=== PATIENT | female | born 1965 | race African-American/Black ===

== ENCOUNTER 2016-10-02 12:45 | Emergency (ER) | payer BC, OTHER ==
[2016-10-02 13:07] VITALS: BP 118/74; PULSE 64; TEMP 98.1; BMI 31.3
[2016-10-02] MEDS ORDERED: IBUPROFEN 600 MG TABLET (FP) PO ONE ×2 (13:28→13:36)
--- NOTE | 2016-10-02 13:39 | PDOC ---
History of Present Illness - General Chief Complaint: Injury Stated Complaint: FALL, WRIST PAIN Time Seen by Provider: 10/02/16 13:24 History Source: Patient Exam Limitations: No Limitations - History of Present Illness Initial Comments: 10/02/16 13:35 51 yr female slipped and fell on applesauce that was on the floor at her job injured left wrist. no head trauma. no deformity. Occurred: reports: this morning Severity: reports: mild Pain Location: reports: upper extremity (left wrist/hand) Past History - Past Medical History Allergies/Adverse Reactions: Allergies Allergy/AdvReac Type Severity Reaction Status Date / Time No Known Drug Allergies Allergy Verified 10/02/16 13:03 adhesive remover AdvReac Severe Hives Uncoded 10/02/16 13:03 Home Medications: Ambulatory Orders Cholecalciferol (Vitamin D3) [Vitamin D] 1,000 unit PO DAILY 02/11/16 Multivitamins [Tab-A-Vit -] 1 tab PO DAILY 02/11/16 Ibuprofen [Motrin -] 400 mg PO PRN PRN 02/18/16 Amox-Clav 875-125 mg Tablet 1 tab PO BID 03/26/16 Anemia: No Asthma: No Cancer: No Cardiac Disorders: No CVA: No COPD: No CHF: No Dementia: No Diabetes: No GI Disorders: No Disorders: No HTN: No Hypercholesterolemia: No Liver Disease: No Seizures: No Thyroid Disease: No Other medical history: DENIES. - Surgical History Abdominal Surgery: No Appendectomy: No Cardiac Surgery: No Cholecystectomy: No GI Surgery: Yes (gastric sleeve) Lung Surgery: No Neurologic Surgery: (LYMPH NODE REMOVED FROM NECK - BENIGN) Orthopedic Surgery: No - Immunization History Immunization Up to Date: Yes - Psycho/Social/Smoking Cessation Hx Anxiety: No Suicidal Ideation: No Smoking Status: Yes Smoking History: Current some day smoker Have you smoked in the past 12 months: Yes Number of Cigarettes Smoked Daily: 3 If you are a former smoker, when did you quit?: SOCIAL SMOKER-LAST CIGARETTE Information on smoking cessation initiated: No 'Breaking Loose' booklet given: 02/11/16 Hx Alcohol Use: Yes (SOCIAL) Drug/Substance Use Hx: No Substance Use Type: None Hx Substance Use Treatment: No Trauma Specific PMHX - Complaint Specific PMHX Arthritis: No Back Injury: No Neck Injury: No Hx Sacro Iliac Joint Dysfunction: No Review of Systems - Review of Systems Able to Perform ROS?: Yes Is the patient limited Kinyarwanda proficient: No Constitutional: No: Symptoms Reported HEENTM: No: Symptoms Reported Respiratory: No: Symptoms reported Cardiac (ROS): No: Symptoms Reported ABD/GI: No: Symptoms Reported : No: Symptoms Reported Musculoskeletal: Yes: See HPI *Physical Exam - Vital Signs Last Vital Signs Temp Pulse Resp BP Pulse Ox 98.1 F 64 19 118/74 95 10/02/16 13:03 10/02/16 13:03 10/02/16 13:03 10/02/16 13:03 10/02/16 13:03 - Physical Exam General Appearance: Yes: Nourished, Appropriately Dressed HEENT: positive: EOMI, JULIANNA Neck: positive: Supple Respiratory/Chest: positive: Lungs Clear, Normal Breath Sounds Cardiovascular: positive: Regular Rhythm, Regular Rate Gastrointestinal/Abdominal: positive: Normal Bowel Sounds, Soft Extremity: positive: Normal Capillary Refill, Normal Inspection, Normal Range of Motion, Tender (left at crease of wrist with bending, mild bruising noted no point bony tenderness) Integumentary: positive: Normal Color, Dry, Warm Neurologic: positive: Fully Oriented, Alert, Normal Mood/Affect, Normal Response , Motor Strength 5/5 ED Treatment Course - RADIOLOGY Radiology Studies Ordered: Category Date Time Status WRIST W/HAND-LEFT* [RAD] Stat Radiology 10/02/16 13:24 Ordered Medical Decision Making - Medical Decision Making 10/02/16 13:37 cc: slip and fall injured left wrist and hand nv intact no deformity or swelling tender to touch crease of wrist left will xray to r/o frx motrin for pain *DC/Admit/Observation/Transfer Diagnosis at time of Disposition: Left wrist sprain Qualifiers: Encounter type: initial encounter Qualified Code(s): S63.502A - Unspecified sprain of left wrist, initial encounter - Discharge Dispostion Disposition: HOME Condition at time of disposition: Good - Referrals Referrals: Manohar Vickers MD [Primary Care Provider] - Dm Tyler MD [Staff Physician] - - Patient Instructions Additional Instructions: follow with the orthopedist if any worsening symptoms or pain take motrin (over the counter advil, ibuprofen) 400-600mg every 6hrs for pain use the wrist splint while awake remove to sleep and bathe - Post Discharge Activity Work/School Note: Back to Work
== END 2016-10-02 14:05 | disposition home or self-care (01) ==
LOC: JERFT 12:45
PROC: 2W3DX1Z Immobilization of Left Lower Arm using Splint (ICD-10-PCS; principal; 2016-10-02)
DX: S63.502A Unspecified sprain of left wrist, initial encounter (principal); W01.0XXA Fall on same level from slipping, tripping and stumbling without subsequent striking against object, initial encounter; Y93.89 Activity, other specified; Y92.218 Other school as the place of occurrence of the external cause; Y99.0 Civilian activity done for income or pay
CPT/HCPCS: 73110-TC-LT; 73130-TC-LT; 99281-25

== ENCOUNTER 2017-09-09 15:30 | Inpatient (IN) | payer BC ==
[2017-09-15 09:47] VITALS: BMI 33.8
[2017-09-16] MEDS ORDERED: BUPIVACAINE HCL/PF 0.5% (5MG/ML) 10 ML VIAL ONE (13:05)
[2017-09-16] MEDS ORDERED: ROCURONIUM BROMIDE 50 MG/5 ML VIAL ONE ×2 (13:23→14:53)
[2017-09-16] MEDS ORDERED: MIDAZOLAM HCL 2 MG/2 ML SINGLE DOSE VIAL ONE (13:23)
[2017-09-16] MEDS ORDERED: SUCCINYLCHOLINE CHLORIDE 200 MG/10 ML VIAL ONE (13:24)
[2017-09-16] MEDS ORDERED: ceFAZolin SODIUM 1 GM VIAL IVPB ONE (13:43)
[2017-09-16] MEDS ORDERED: LIDOCAINE HCL/PF 2% SDV 5ML VIAL ONE (14:45)
[2017-09-16] MEDS ORDERED: LIDOCAINE HCL 2% JELLY (5 ML/TUBE) ONE (14:45)
[2017-09-16] MEDS ORDERED: hydrALAZINE HCL 20 MG/ML VIAL ONE (14:45)
[2017-09-16] MEDS ORDERED: DEXAMETHASONE SOD PHOSPHATE 4 MG/1 ML VIAL ONE (14:45)
[2017-09-16] MEDS ORDERED: METOPROLOL TARTRATE 5 MG/5 ML VIAL ONE (14:45)
[2017-09-16] MEDS ORDERED: NEOSTIGMINE METHYLSULFATE 0.5 MG/ML - 10 ML MDV ONE (15:15)
[2017-09-16] MEDS ORDERED: GLYCOPYRROLATE 0.2 MG/1 ML VIAL ONE (15:15)
[2017-09-16] MEDS ORDERED: BUPIVACAINE HCL/PF 0.5% (5MG/ML) 10 ML VIAL IJ ONE (15:20)
--- NOTE | 2017-09-16 15:26 | OP ---
Operative Note - Note: Operative Date: 09/16/17 Pre-Operative Diagnosis: Rule out leak/obstruction s/p sleeve gastrectomy Operation: EGD/upper endoscopy Post-Operative Diagnosis: Other (No leak/obstruction) Surgeon: Ede Peralta Anesthesia: General Specimens Removed: None Estimated Blood Loss (mls): 0 Operative Report Dictated: Yes
[2017-09-16] MEDS ORDERED: SODIUM CHLORIDE 1,000 ML IV SCH (15:30)
--- NOTE | 2017-09-16 15:30 | OP ---
Operative Note - Note: Operative Date: 09/16/17 Pre-Operative Diagnosis: Morbid Obesity Operation: Laparoscopic Vertical Sleeve Gastrectomy. Laparoscopic Lysis of adhesions. Diagnostic Laparoscopy Findings: Greater curve sleeve gastrectomy performed with #[address] Large amount of adhesions noted on greater curve from previous surgery Post-Operative Diagnosis: Same as Pre-op (Abdominal adhesions) Surgeon: Cash Helms Burglar Alarm Operator: Ede Peralta Anesthesia: General Specimens Removed: Greater curve of stomach Estimated Blood Loss (mls): 50 Operative Report Dictated: Yes
[2017-09-16] MEDS ORDERED: IBUPROFEN 800 MG/8 ML IJ IVPB PRN (15:31)
[2017-09-16] MEDS: METOCLOPRAMIDE HCL INJECTION 10 MG/2 ML VIAL IVPUSH PRN (15:45)
[2017-09-16] MEDS ORDERED: LACTATED RINGERS SOLUTION 1,000 ML IV SCH (15:45)
[2017-09-16] MEDS ORDERED: oxyCODONE HCL 5 MG TABLET PO PRN (15:50)
--- NOTE | 2017-09-16 15:55 | OP ---
DATE OF OPERATION: 09/16/2017 SURGEON: Filomena Peralta MD PREOPERATIVE DIAGNOSIS: Rule out leak/obstruction after vertical sleeve gastrectomy. POSTOPERATIVE DIAGNOSIS: No leak/no obstruction. PROCEDURE: Esophagogastroduodenoscopy/upper endoscopy. SPECIMEN: None. ESTIMATED BLOOD LOSS: Zero mL. DRAINS: None. ANESTHESIA: GET. REASON FOR PROCEDURE: This is a 52-year-old female who underwent a vertical sleeve gastrectomy by Dr. Cash Helms. Upper endoscopy was requested to rule out leak/obstruction. The upper endoscope was inserted into patient's mouth, and the esophagus, GE junction, gastric pouch, and staple line were inspected. Hemostasis was noted. No leak or obstruction was noted. The stomach was suctioned and the endoscope removed. Patient tolerated the procedure well, and the remainder of the vertical sleeve gastrectomy was continued. FILOMENA PERALTA M.D. [id number]
[2017-09-16 16:07] LABS: HEMATOCRIT 38.1 % (32.4-45.2); HEMOGLOBIN 12.6 GM/dL (10.7-15.3); MCH 28.4 pg (25.7-33.7); MEAN CELL VOLUME 86.2 fl (80-96); MEAN PLT VOLUME 9.5 fl (7.5-11.1); PLATELET COUNT 220 K/MM3 (134-434); RBC 4.43 M/mm3 (3.60-5.2); RDW 14.9 % (11.6-15.6); WHITE BLOOD COUNT 6.6 K/mm3 (4.0-10.0)
[2017-09-16] MEDS ORDERED: FAMOTIDINE 20 MG PREMIXED IVPB IVPB ONE (16:20)
--- NOTE | 2017-09-16 16:31 | OP ---
DATE OF OPERATION: 09/16/2017 PREOPERATIVE DIAGNOSIS. Morbid obesity. POSTOPERATIVE DIAGNOSES: 1. Morbid obesity. 2. Abdominal adhesions. PROCEDURE PERFORMED: 1. Laparoscopic vertical sleeve gastrectomy. 2. Laparoscopic lysis of adhesions. 3. Diagnostic laparoscopy. OPERATING SURGEON: Cash Helms MD LEAK INSPECTOR: Ede Peralta MD ANESTHESIA: General. OPERATIVE PROCEDURE: The patient was brought into the operating room and placed on the OR table in the supine position. All precautions were taken initially including padding for the back and the feet and Venodyne boots were placed on both lower extremities. At that point the abdomen was prepped and draped in the usual manner. A Veress needle was placed in the left upper quadrant and a pneumoperitoneum was established. At that point once pneumoperitoneum was established a No. 5 bladeless trocar was placed under direct vision with a laparoscopic camera into the midline above the umbilicus. At that point a No. 5 bladeless trocar was placed in the right upper quadrant and a No. 12 bladeless trocar was then placed in the left upper quadrant followed by a No. 5 bladeless trocar below the left costal margin. The midline No. 5 trocar was then changed to a No. 15 bladeless trocar in the midline in the supraumbilical position. At this point a Mode liver retractor was placed in the epigastrium to retract the left lobe of the liver. The patient was placed in a reverse Trendelenburg position of 20 degrees by Anesthesia. Once this was done, attention was directed to the distal stomach. Then 6 cm were measured proximally from the pylorus and here the operating surgeon lifted the stomach toward the anterior abdominal wall as the vet assistant surgeon retracted the gastrocolic ligament inferiorly. There was a lot of scar tissue on the greater curvature in this area from the patients previous stomach surgery. The LigaSure device was used to dissect the gastrocolic ligament and then the short gastric vessels off the greater curve of the stomach. This continued in a superior vertical direction until the final short gastric vessel between the superior pole of the spleen and proximal fundus was divided and now the entire greater curve was free of all attachments. At this point Anesthesia placed a number 36 bougie along the lesser curve of the stomach. With the bougie held along the lesser curve, a series of demetra were performed with the first 2 demetra being black load demetra 6 cm in length along the bougie. This was followed by a series of purple demetra also 6 cm in length along the bougie until the final staple was fired in the left upper quadrant. The greater curve was now completely detached from the lesser curve. It should be noted that prior to firing each stapler that both the anterior and posterior sandoval were checked that they were intact and in the area of the esophagogastric junction approximately a 1 to 1-1/2-cm of serosa remained on the anterior and posterior surfaces. At this juncture, Dr. Peralta stepped out of surgery and performed an upper endoscopy. His details are described in the operative note but essentially showed that there was no obstruction all the way down through the pylorus and that there was on luminal bleeding from the sleeve and also there were no signs of any air leak from the outside with saline placed around the staple line. At this point the resected greater curve was removed with a No. 15 trocar site and sent off the field as a specimen to pathology. Under direct vision the No. 15 and No. 12 trocar sites were closed with the Endo Closure device to prevent internal hernia and to prevent bleeding. Under direct vision all trocars were removed and the pneumoperitoneum was released. All trocar sites received 0.25% Marcaine. They were all closed with 4-0 Biosyn in a subcuticular fashion except for the No. 15 midline trocar which first was closed with 3-0 Vicryl in the subcutaneous tissue followed by 4-0 Biosyn in a subcuticular fashion. Dressings were applied. The patient awoke from anesthesia and transferred out of the operating room to the recovering room in stable condition. EXPECTED BLOOD LOSS: 50 mL. Elayne [id number]
[2017-09-16] MEDS ORDERED: ACETAMINOPHEN 1000 MG/100 ML VIAL (NON FORMULARY) IVPB ONE (16:36)
[2017-09-16] MEDS ORDERED: ONDANSETRON 4 MG/2 ML VIAL ONE (16:45)
[2017-09-16 16:55] LABS: ALBUMIN 3.6 g/dl (3.4-5.0); ANION GAP 6 (8-16); BLOOD UREA NITROGEN 13 mg/dL (7-18); CHLORIDE 110 mmol/L (98-107); CO2 28 mmol/L (21-32); GLUCOSE,RANDOM 168 mg/dL (74-106); POTASSIUM 3.6 mmol/L (3.5-5.1); SODIUM 144 mmol/L (136-145)
[2017-09-16 17:01] LABS: ALK PHOS 46 U/L (45-117); BILIRUBIN,TOTAL 0.6 mg/dL (0.2-1.0); SGOT/AST 21 U/L (15-37); SGPT/ALT 24 U/L (12-78)
[2017-09-16] MEDS: ONDANSETRON 4 MG/2 ML VIAL IVPUSH PRN ×2 (17:10→18:10)
[2017-09-16 18:28] LABS: CALCIUM 8.9 mg/dL (8.5-10.1)
[2017-09-16] MEDS: FAMOTIDINE 20 MG/50 ML IVPB 20 MG/50 ML MG IVPB SCH (21:00)
[2017-09-16] MEDS: MEPERIDINE HCL CARPU-JECT 50 MG/1 ML DISP.SYRIN IM PRN (21:15)
[2017-09-17] MEDS: MEPERIDINE HCL CARPU-JECT 50 MG/1 ML DISP.SYRIN IM PRN (03:19)
[2017-09-17 07:27] LABS: HEMATOCRIT 35.4 % (32.4-45.2); HEMOGLOBIN 11.8 GM/dL (10.7-15.3); MCH 28.6 pg (25.7-33.7); MCHC 33.3 g/dl (32.0-36.0); MEAN CELL VOLUME 85.8 fl (80-96); MEAN PLT VOLUME 9.5 fl (7.5-11.1); PLATELET COUNT 196 K/MM3 (134-434); RBC 4.12 M/mm3 (3.60-5.2); RDW 14.7 % (11.6-15.6); WHITE BLOOD COUNT 7.2 K/mm3 (4.0-10.0)
[2017-09-17 08:25] LABS: ALBUMIN 3.2 g/dl (3.4-5.0); ANION GAP 11 (8-16); BLOOD UREA NITROGEN 10 mg/dL (7-18); CHLORIDE 110 mmol/L (98-107); CO2 23 mmol/L (21-32); GLUCOSE,RANDOM 89 mg/dL (74-106); POTASSIUM 3.8 mmol/L (3.5-5.1); SGPT/ALT 20 U/L (12-78); SODIUM 144 mmol/L (136-145)
[2017-09-17 08:28] LABS: ALK PHOS 43 U/L (45-117); BILIRUBIN,TOTAL 0.8 mg/dL (0.2-1.0); CREATININE 0.8 mg/dL (0.55-1.02); SGOT/AST 17 U/L (15-37); TOT PROT 6.9 g/dl (6.4-8.2)
[2017-09-17] MEDS: ONDANSETRON 4 MG/2 ML VIAL IVPUSH PRN (09:28)
[2017-09-17] MEDS: FAMOTIDINE 20 MG/50 ML IVPB 20 MG/50 ML MG IVPB SCH ×2 (09:34→21:44)
[2017-09-17] MEDS ORDERED: SODIUM CHLORIDE 1,000 ML IV SCH (12:15)
[2017-09-17] MEDS ORDERED: oxyCODONE HCL 5 MG TABLET PO PRN (12:15)
[2017-09-17] MEDS ORDERED: ACETAMINOPHEN 325 MG TABLET (FP) PO PRN (12:15)
[2017-09-17] MEDS: METOCLOPRAMIDE HCL INJECTION 10 MG/2 ML VIAL IVPUSH PRN (12:26)
--- NOTE | 2017-09-17 15:10 | PN ---
Progress Note (short form) - Note Progress Note: POD#1 Afebrile;VSS P-90-100 BP-130/80 Pt doing well Tolerating PO water UGI- no leak, no obstruction WBC-7.2 H/H- 11.8/35.4 P- Begin PO clear liquids 2 oz PO TID Cont DVT prophylaxis Cont incentive spirometer
[2017-09-18 08:06] VITALS: BP 118/65; PULSE 90; TEMP 98.5
[2017-09-18] MEDS: FAMOTIDINE 20 MG/50 ML IVPB 20 MG/50 ML MG IVPB SCH (10:01)
--- NOTE | 2017-09-20 16:23 | PATH ---
Surgical Pathology Report Patient Name: [facility]. Rec. #: [id number] /Age/Gender: 1965 (Age: 52) / F Account: [id number] Location: 4 W TELEMETRY U Taken: 09/16/2017 Received: 09/17/2017 Reported: 09/20/2017 Physicians: Cash Helms M.D. Specimen(s) Received GREATER CURVATURE STOMACH Clinical History Morbid obesity Final Diagnosis STOMACH, GREATER CURVATURE, LAPAROSCOPIC VERTICAL SLEEVE GASTRECTOMY: PORTION OF STOMACH WITH MILD CHRONIC GASTRITIS. IMMUNOHISTOCHEMICAL STAIN FOR H. PYLORI IS NEGATIVE. Electronically Signed Mayela Noel M.D. Gross Description Received in formalin, labeled "greater curvature stomach," is a 57 gram, 17.0 x 2.8 x 2.5 cm. portion of stomach with a stapled margin of resection. The serosa is bustillos-martinez with minimal attached fat. The mucosa is bustillos-pink with normal folds. No mucosal masses are identified. Floor Steward/Stewardess sections are submitted in one cassette. /09/17/2017 [facility]/09/17/2017
== END 2017-09-18 11:22 | disposition home or self-care (01) | DRG 621 ==
LOC: JSAMEDAYSX 09-16 10:58 → EDSTATUS 09-16 11:00 → J4W 09-16 18:05
PROVIDERS: ADMIT Surgery; ATTEND Surgery
PROC: 0DJ08ZZ Inspection of Upper Intestinal Tract, Via Natural or Artificial Opening Endoscopic (ICD-10-PCS; 2017-09-16)
PROC: 0DB64Z3 Excision of Stomach, Percutaneous Endoscopic Approach, Vertical (ICD-10-PCS; principal; 2017-09-16 11:00)
PROC: 0DNW4ZZ Release Peritoneum, Percutaneous Endoscopic Approach (ICD-10-PCS; 2017-09-16 11:00)
DX: E66.01 Morbid (severe) obesity due to excess calories (principal); K66.0 Peritoneal adhesions (postprocedural) (postinfection); Z68.34 Body mass index [BMI] 34.0-34.9, adult
CPT/HCPCS: 36415; 74241-TC-FY; 80053; 85027; 88307-TC; 94010; J0131; J7030

== ENCOUNTER 2019-02-11 23:40 | Emergency (ER) | payer BC | END 2019-02-12 00:26 | disposition home or self-care (01) | LOC: JER 23:40 | PROC: 3E0233Z Introduction of Anti-inflammatory into Muscle, Percutaneous Approach (ICD-10-PCS; principal; 2019-02-11) | DX: R25.2 Cramp and spasm (principal); Z72.0 Tobacco use; Z98.84 Bariatric surgery status ==

== ENCOUNTER 2019-05-18 17:40 | Emergency (ER) | payer BC ==
--- NOTE | 2019-05-18 17:43 | PDOC ---
Rapid Medical Evaluation Time Seen by Provider: 05/18/19 17:42 Medical Evaluation: Allergies Allergy/AdvReac Type Severity Reaction Status Date / Time No Known Drug Allergies Allergy Verified 02/12/19 00:03 adhesive remover AdvReac Severe Hives Uncoded 02/12/19 00:03 05/18/19 17:42 I have performed a brief in-person evaluation of this patient. The patient presents with a chief complaint of: chest pain Pertinent physical exam findings:stable and in NAD, non-focal I have ordered the following:labs, ekg The patient will proceed to the ED for further evaluation. 05/18/19 18:19 Discharge Disposition - Discharge Dispostion Condition at time of disposition: Stable - Referrals - Patient Instructions - Post Discharge Activity
[2019-05-18 17:57] VITALS: BP 118/64; PULSE 74; TEMP 98
[2019-05-18 18:13] LABS: BASO % 0.7 % (0-2.0); HEMATOCRIT 40.7 % (32.4-45.2); HEMOGLOBIN 13.3 GM/dL (10.7-15.3); LYMPH % 51.3 % (8-40); MCH 28.2 pg (25.7-33.7); MCHC 32.8 g/dl (32.0-36.0); MEAN PLT VOLUME 8.4 fl (7.5-11.1); MONO % 7.6 % (3.8-10.2); NEUT % 37.4 % (42.8-82.8); PLATELET COUNT 247 K/MM3 (134-434); RBC 4.73 M/mm3 (3.60-5.2); RDW 14.6 % (11.6-15.6); WHITE BLOOD COUNT 4.8 K/mm3 (4.0-10.0)
--- NOTE | 2019-05-18 18:19 | PDOC ---
History of Present Illness - General Chief Complaint: Chest Pain Stated Complaint: CHEST PAIN Time Seen by Provider: 05/18/19 17:42 - History of Present Illness Initial Comments: 05/18/19 18:19 CHIEF COMPLAINT: chest "spasms" HISTORY OF PRESENT ILLNESS: 54 yo F with hx of gastric sleeve (2016) presents to ED with chest spasms. Patient reports the discomfort began this morning while on bus ride , was worried for about 15 minutes. Started again this afternoon around 330, started work at 4 pm. Patient has hx of gastric sleeve and takes pepcid for heartburn. Picked up heavy box on wednesday, was leaned over and ironing yesterday and that is unusual for her "and I never lift anything." PCP: [place] No recent travel or sick contacts. PAST MEDICAL HISTORY: Denies past medical history FAMILY HISTORY: Denies SOCIAL HISTORY: Denies tobacco, alcohol, illicit drug use. SURGICAL HISTORY: , hysterectomy ALLERGIES: No known drug allergies REVIEW OF SYSTEMS General/Constitutional: Denies fever or chills. Denies weakness, weight change. HEENT: Denies change in vision. Denies ear pain or discharge. Denies sore throat. Cardiovascular: "I feel like chest spasms to my right chest wall. It's not pain or pressure at all." Denies SOB. Respiratory: Denies cough, wheezing, or hemoptysis. Gastrointestinal: Denies nausea, vomiting, diarrhea or constipation. Denies rectal bleeding. Genitourinary: Denies dysuria, frequency, or change in urination. Musculoskeletal: Denies joint or muscle swelling or pain. Denies neck or back pain. Skin and breasts: Denies rash or easy bruising. Neurologic: Denies headache, vertigo, loss of consciousness, or loss of sensation. Psychiatric: Denies depression or anxiety. PHYSICAL EXAM General Appearance: Well-appearing, appropriately dressed. No apparent distress , no intoxication. HEENT: EOMI, PERRLA, normal ENT inspection, normal voice, TMs normal, pharynx normal. No conjunctival pallor. No photophobia, scleral icterus. Neck: Supple. Trachea midline. No tenderness, rigidity, carotid bruit, stridor , lymphadenopathy, or thyromegaly. Respiratory/Chest: Lungs CTAB. No shortness of breath, chest tenderness, respiratory distress, accessory muscle use. No crackles, rales, rhonchi, stridor , wheezing, dullness Cardiovascular: RRR. S1, S2. No JVD, murmur, bradycardia, tachycardia. Vascular Pulses: Dorsalis-Pedis (R): 2+, Dorsalis-Pedis (L): 2+ Gastrointestinal/Abdominal: Normal bowel sounds. Abdomen soft, non-distended. No tenderness or rebound tenderness. No organomegaly, pulsatile mass, guarding , hernia, hepatomegaly, splenomegaly. Lymphatic: No adenopathy, tenderness. Musculoskeletal/Extremities: Normal inspection. FROM of all extremities, normal capillary refill. Pelvis Stable. No CVA tenderness. No tenderness to extremities, pedal edema, swelling, erythema or deformity. Integumentary: Appropriate color, dry, warm. No cyanosis, erythema, jaundice or rash Neurologic: track man II-XII intact. Fully oriented, alert. Appropriate mood/affect. Motor strength 5/5. No appreciable EOM palsy, facial droop or sensory deficit. Past History - Past Medical History Allergies/Adverse Reactions: Allergies Allergy/AdvReac Type Severity Reaction Status Date / Time No Known Drug Allergies Allergy Verified 02/12/19 00:03 adhesive remover AdvReac Severe Hives Uncoded 02/12/19 00:03 Home Medications: Ambulatory Orders Famotidine [Pepcid -] 20 mg PO BID #60 tablet 09/16/17 Cholecalciferol (Vitamin D3) [Vitamin D3 -] 400 unit PO DAILY 05/18/19 Ibuprofen 400 mg PO TID PRN #30 tablet 05/18/19 Multivitamin [Multiple Vitamins] 1 each PO DAILY 05/18/19 Anemia: No Asthma: No Cancer: No Cardiac Disorders: No CVA: No COPD: No CHF: No Dementia: No Diabetes: No GI Disorders: No Disorders: No HTN: No Hypercholesterolemia: No Liver Disease: No Seizures: No Thyroid Disease: No - Surgical History Abdominal Surgery: No Appendectomy: No Cardiac Surgery: No Cholecystectomy: No GI Surgery: Yes (gastric sleeve) Lung Surgery: No Neurologic Surgery: (LYMPH NODE REMOVED FROM NECK - BENIGN) Orthopedic Surgery: No - Immunization History Immunization Up to Date: Yes - Psycho Social/Smoking Cessation Hx Smoking Status: Yes Smoking History: Current some day smoker Have you smoked in the past 12 months: No Number of Cigarettes Smoked Daily: 3 If you are a former smoker, when did you quit?: SOCIAL SMOKER-LAST CIGARETTE Information on smoking cessation initiated: No 'Breaking Loose' booklet given: 02/11/16 Hx Alcohol Use: Yes Drug/Substance Use Hx: No Substance Use Type: None Hx Substance Use Treatment: No Cardiac Specific PMH - Complaint Specific PMHX Pacemaker: No *Physical Exam - Vital Signs Last Vital Signs Temp Pulse Resp BP Pulse Ox 98.0 F 74 16 118/64 98 05/18/19 17:42 05/18/19 17:42 05/18/19 17:42 05/18/19 17:42 05/18/19 18:39 ED Treatment Course - LABORATORY CBC & Chemistry Diagram: 05/18/19 17:51 05/18/19 17:51 - ADDITIONAL ORDERS Additional order review: Laboratory Results 05/18/19 17:51 Sodium 139 Potassium 4.0 Chloride 107 Carbon Dioxide 27 Anion Gap 5 L BUN 15.6 Creatinine 1.1 Est GFR (CKD-EPI)AfAm 65.00 Est GFR (CKD-EPI)NonAf 56.08 Random Glucose 122 H Calcium 9.7 Total Bilirubin 0.3 AST 22 ALT 35 Alkaline Phosphatase 72 Creatine Kinase 65 Troponin I < 0.02 Total Protein 7.6 Albumin 3.8 05/18/19 17:51 RBC 4.73 MCV 86.0 MCHC 32.8 RDW 14.6 MPV 8.4 D Neutrophils % 37.4 L D Lymphocytes % 51.3 H D Monocytes % 7.6 Eosinophils % 3.0 Basophils % 0.7 Medical Decision Making - Medical Decision Making 05/18/19 18:27 54 yo F with hx of gastric sleeve (2015) presents to ED with chest spasms. -labs -ekg ekg normal labs wnl, negative trop Patient currently asymptomatic, VSS. Spasms likely MSK discomfort, unlikely of cardiac etiology. Will dc to home with close f/u with PCP. Discharge - Discharge Information Problems reviewed: Yes Clinical Impression/Diagnosis: Muscle spasm Condition: Stable Disposition: HOME - Admission No - Additional Discharge Information Prescriptions: Ibuprofen 400 mg PO TID PRN #30 tablet PRN Reason: muscle pain - Follow up/Referral Referrals: Manohar Vickers MD [Primary Care Provider] - - Patient Discharge Instructions Patient Printed Discharge Instructions: DI for Atypical Chest Pain Additional Instructions: Please take medications as prescribed. Follow up with your primary care doctor within the next week for continued monitoring of your symptoms. If you develop any chest pain/pressure, shortness of breath, headache, dizziness, or any new or worsening symptoms, please return to the ER. - Post Discharge Activity
[2019-05-18 18:38] LABS: ALBUMIN 3.8 g/dl (3.4-5.0); ALK PHOS 72 U/L (45-117); ANION GAP 5 MMOL/L (8-16); BILIRUBIN,TOTAL 0.3 mg/dL (0.2-1); BLOOD UREA NITROGEN 15.6 mg/dL (7-18); CALCIUM 9.7 mg/dL (8.5-10.1); CHLORIDE 107 mmol/L (98-107); CO2 27 mmol/L (21-32); CREATININE 1.1 mg/dL (0.55-1.3); GLUCOSE,RANDOM 122 mg/dL (74-106); SGOT/AST 22 U/L (15-37); SGPT/ALT 35 U/L (13-61); SODIUM 139 mmol/L (136-145); TOT PROT 7.6 g/dl (6.4-8.2)
--- NOTE | 2019-05-18 18:40 | PDOC ---
*Physical Exam - Vital Signs Last Vital Signs Temp Pulse Resp BP Pulse Ox 98.0 F 74 16 118/64 98 05/18/19 17:42 05/18/19 17:42 05/18/19 17:42 05/18/19 17:42 05/18/19 17:42 ED Treatment Course - LABORATORY CBC & Chemistry Diagram: 05/18/19 17:51 05/18/19 17:51 - ADDITIONAL ORDERS Additional order review: Laboratory Results 05/18/19 17:51 Sodium 139 Potassium 4.0 Chloride 107 Carbon Dioxide 27 Anion Gap 5 L BUN 15.6 Creatinine 1.1 Est GFR (CKD-EPI)AfAm 65.00 Est GFR (CKD-EPI)NonAf 56.08 Random Glucose 122 H Calcium 9.7 Total Bilirubin 0.3 AST 22 ALT 35 Alkaline Phosphatase 72 Creatine Kinase 65 Troponin I < 0.02 Total Protein 7.6 Albumin 3.8 05/18/19 17:51 RBC 4.73 MCV 86.0 MCHC 32.8 RDW 14.6 MPV 8.4 D Neutrophils % 37.4 L D Lymphocytes % 51.3 H D Monocytes % 7.6 Eosinophils % 3.0 Basophils % 0.7 Medical Decision Making - Medical Decision Making 05/18/19 18:40 Pt seen by Midlevel Provider under my direct supervision I was available for consultation Ancillary studies reviewed Laboratory Tests 05/18/19 17:51 Creatine Kinase 65 Troponin I < 0.02 I agree with plan as outlined by Midlevel Provider 05/18/19 19:21 05/18/19 19:22 Discharge - Discharge Information Problems reviewed: Yes Clinical Impression/Diagnosis: Muscle spasm Condition: Stable Disposition: HOME - Admission No - Additional Discharge Information Prescriptions: Ibuprofen 400 mg PO TID PRN #30 tablet PRN Reason: muscle pain - Follow up/Referral Referrals: Manohar Vickers MD [Primary Care Provider] - - Patient Discharge Instructions Patient Printed Discharge Instructions: DI for Atypical Chest Pain Additional Instructions: Please take medications as prescribed. Follow up with your primary care doctor within the next week for continued monitoring of your symptoms. If you develop any chest pain/pressure, shortness of breath, headache, dizziness, or any new or worsening symptoms, please return to the ER. - Post Discharge Activity
--- NOTE | 2019-05-19 13:47 | EKG ---
Test Reason : Blood Pressure : / mmHG Vent. Rate : 064 BPM Atrial Rate : 064 BPM P-R Int : 156 ms QRS Dur : 078 ms QT Int : 366 ms P-R-T Axes : 059 027 025 degrees QTc Int : 377 ms NORMAL SINUS RHYTHM POSSIBLE LEFT ATRIAL ENLARGEMENT NONSPECIFIC T WAVE ABNORMALITY ABNORMAL ECG WHEN COMPARED WITH ECG OF 29-JUL-2017 09:02, NONSPECIFIC T WAVE ABNORMALITY NOW EVIDENT IN ANTEROLATERAL LEADS Confirmed by CASSANDRA FONTAINE MD ([id number]) on 05/19/2019 1:47:07 PM Referred By: Confirmed By:CASSANDRA FONTAINE MD
== END 2019-05-18 19:49 | disposition home or self-care (01) ==
LOC: JER 17:40
DX: M62.838 Other muscle spasm (principal); Z98.84 Bariatric surgery status; Z72.0 Tobacco use
CPT/HCPCS: 36415; 71046-TC-FY; 80053; 82550; 84484; 85025; 93005; 93010; 99285-25

== ENCOUNTER 2021-05-11 07:48 | Emergency (ER) | payer BC ==
[2021-05-11 08:01] VITALS: BP 114/78; PULSE 88; TEMP 97; BMI 30.4
[2021-05-11] MEDS ORDERED: KETOROLAC TROMETHAMINE 30 MG/1 ML VIAL IM ONE (08:42)
[2021-05-11] MEDS ORDERED: KETOROLAC TROMETHAMINE 30 MG/1 ML VIAL ONE (09:12)
== END 2021-05-11 12:19 | disposition home or self-care (01) ==
LOC: JER 07:48
PROC: 3E0233Z Introduction of Anti-inflammatory into Muscle, Percutaneous Approach (ICD-10-PCS; principal; 2021-05-11)
DX: S82.832A Other fracture of upper and lower end of left fibula, initial encounter for closed fracture (principal); W10.1XXA Fall (on)(from) sidewalk curb, initial encounter; Y93.01 Activity, walking, marching and hiking
CPT/HCPCS: 73610-TC-LT-FY; 73630-TC-LT; 99284-25

== ENCOUNTER 2021-06-09 13:49 | Emergency (ER) | payer BC ==
[2021-06-09 14:40] VITALS: BP 123/66; PULSE 94; TEMP 98.3; BMI 29.7
[2021-06-09] MEDS ORDERED: KETOROLAC TROMETHAMINE 30 MG/1 ML VIAL IM ONE (16:49)
[2021-06-09] MEDS ORDERED: KETOROLAC TROMETHAMINE 30 MG/1 ML VIAL ONE (17:26)
== END 2021-06-09 19:22 | disposition home or self-care (01) ==
LOC: JERFT 13:49
PROC: 3E0233Z Introduction of Anti-inflammatory into Muscle, Percutaneous Approach (ICD-10-PCS; principal; 2021-06-09)
DX: M54.50 Low back pain, unspecified (principal)
CPT/HCPCS: 99284-25

== ENCOUNTER 2022-06-15 01:46 | Emergency (ER) | payer BC ==
[2022-06-15 02:01] VITALS: BP 139/89; PULSE 101; RESP 20; TEMP 97.9; BMI 31.0
[2022-06-15] MEDS ORDERED: DEXAMETHASONE SOD PHOSPHATE 10 MG/1 ML VIAL IM ONE (02:57)
[2022-06-15] MEDS ORDERED: FAMOTIDINE 10 MG TABLET PO ONE (02:57)
[2022-06-15] MEDS ORDERED: FAMOTIDINE 10 MG TABLET ONE (03:10)
[2022-06-15] MEDS ORDERED: DEXAMETHASONE SOD PHOSPHATE 10 MG/1 ML VIAL ONE (03:10)
== END 2022-06-15 03:48 | disposition home or self-care (01) ==
LOC: JER 01:46
PROC: 3E023GC Introduction of Other Therapeutic Substance into Muscle, Percutaneous Approach (ICD-10-PCS; principal; 2022-06-15)
DX: L50.8 Other urticaria (principal)
CPT/HCPCS: 99284-25; J1100